=== PATIENT | male | born 1945 | race Caucasian/White ===

== ENCOUNTER 2021-10-23 01:02 | Inpatient (IN) | payer MEDICARE, MEDICAID ==
[2021-10-23] MEDS ORDERED: Levofloxacin 750 MG Tab ONE (04:58)
[2021-10-23] MEDS ORDERED: Sodium Chloride 0.9% 1,000 ML ONE (04:59)
[2021-10-23 06:23] LABS: CORONAVIRUS COVID-19 NAA NEGATIVE (NEGATIVE)
[2021-10-23] MEDS ORDERED: Acetaminophen 325 MG Tab PO PRN (12:13)
[2021-10-23] MEDS: Azithromycin 500 MG in Sodium Chloride 0.9% 250 ML IV SCH (12:59)
[2021-10-23] MEDS: Formoterol/Mometasone 200-5 MCG 8.8 GM Inhaler IH SCH ×2 (13:27→20:26)
[2021-10-23] MEDS: Dorzolamide/Timolol 2%-0.5% Ophth Soln 10 ML Bottle EYERT SCH ×2 (14:13→21:00)
[2021-10-23] MEDS: Potassium Chloride 20 MEQ Tab.ER PO SCH (14:13)
[2021-10-23] MEDS: Doxazosin 4 MG Tab PO SCH (14:13)
[2021-10-23] MEDS: cefTRIAXone 2 GM in Sodium Chloride 0.9% 100 ML IV SCH (14:13)
[2021-10-23] MEDS: acetaZOLAMIDE 250 MG Tab PO SCH (14:15)
[2021-10-23] MEDS: amLODIPine 10 MG Tab PO SCH (14:15)
[2021-10-23] MEDS ORDERED: UROCIT K 10 MEQ PO SCH (17:00)
[2021-10-23] MEDS: Albuterol/Ipratropium 3.0-0.5 MG/3 ML Neb Soln INH PRN (19:23)
[2021-10-23] MEDS: atorvaSTATin 20 MG Tab PO SCH (21:00)
[2021-10-23] MEDS: Latanoprost 0.005% Ophth Soln 2.5 ML Bottle EYEBOTH SCH (21:00)
[2021-10-24] MEDS: Albuterol/Ipratropium 3.0-0.5 MG/3 ML Neb Soln INH PRN (08:08)
[2021-10-24] MEDS: Formoterol/Mometasone 200-5 MCG 8.8 GM Inhaler IH SCH ×2 (08:08→20:11)
[2021-10-24] MEDS: Potassium Chloride 20 MEQ Tab.ER PO SCH (08:37)
[2021-10-24] MEDS: Enoxaparin 40 MG/0.4 ML Syringe SUBCUT SCH (08:37)
[2021-10-24] MEDS: Dorzolamide/Timolol 2%-0.5% Ophth Soln 10 ML Bottle EYERT SCH ×2 (08:38→20:22)
[2021-10-24] MEDS: acetaZOLAMIDE 250 MG Tab PO SCH (08:39)
[2021-10-24] MEDS: Doxazosin 4 MG Tab PO SCH (08:39)
[2021-10-24] MEDS: amLODIPine 10 MG Tab PO SCH (08:39)
[2021-10-24] MEDS ORDERED: predniSONE 5 MG Tab PO SCH (09:00)
[2021-10-24] MEDS ORDERED: predniSONE 5 MG Tab PO ONE (09:30)
[2021-10-24] MEDS: guaiFENesin 600 MG Tab.ER PO SCH ×2 (10:21→20:24)
[2021-10-24] MEDS: cefTRIAXone 2 GM in Sodium Chloride 0.9% 100 ML IV SCH ×2 (14:03→20:22)
[2021-10-24] MEDS: Azithromycin 500 MG in Sodium Chloride 0.9% 250 ML IV SCH ×2 (14:04→15:33)
[2021-10-24] MEDS: atorvaSTATin 20 MG Tab PO SCH (20:23)
[2021-10-24] MEDS: Latanoprost 0.005% Ophth Soln 2.5 ML Bottle EYEBOTH SCH (20:23)
[2021-10-25] MEDS ORDERED: predniSONE 20 MG Tab PO SCH (07:00)
[2021-10-25] MEDS: Formoterol/Mometasone 200-5 MCG 8.8 GM Inhaler IH SCH ×2 (08:25→20:56)
[2021-10-25] MEDS ORDERED: acetaZOLAMIDE 250 MG Tab PO SCH (09:00)
[2021-10-25] MEDS: guaiFENesin 600 MG Tab.ER PO SCH ×2 (09:04→20:28)
[2021-10-25] MEDS: Enoxaparin 40 MG/0.4 ML Syringe SUBCUT SCH (09:05)
[2021-10-25] MEDS: acetaZOLAMIDE 250 MG Tab PO SCH (09:05)
[2021-10-25] MEDS: Dorzolamide/Timolol 2%-0.5% Ophth Soln 10 ML Bottle EYERT SCH ×2 (09:05→20:36)
[2021-10-25] MEDS: Potassium Chloride 20 MEQ Tab.ER PO SCH (09:06)
[2021-10-25] MEDS: amLODIPine 10 MG Tab PO SCH (09:07)
[2021-10-25] MEDS: Doxazosin 4 MG Tab PO SCH (09:07)
[2021-10-25] MEDS: Azithromycin 500 MG in Sodium Chloride 0.9% 250 ML IV SCH (14:49)
[2021-10-25] MEDS: atorvaSTATin 20 MG Tab PO SCH (20:28)
[2021-10-25] MEDS: Latanoprost 0.005% Ophth Soln 2.5 ML Bottle EYEBOTH SCH (20:28)
[2021-10-25] MEDS: cefTRIAXone 2 GM in Sodium Chloride 0.9% 100 ML IV SCH (20:31)
[2021-10-26] MEDS: acetaZOLAMIDE 250 MG Tab PO SCH (08:37)
[2021-10-26] MEDS: guaiFENesin 600 MG Tab.ER PO SCH ×2 (08:37→20:04)
[2021-10-26] MEDS: Dorzolamide/Timolol 2%-0.5% Ophth Soln 10 ML Bottle EYERT SCH ×2 (08:38→20:04)
[2021-10-26] MEDS: Potassium Chloride 20 MEQ Tab.ER PO SCH (08:38)
[2021-10-26] MEDS: amLODIPine 10 MG Tab PO SCH (08:38)
[2021-10-26] MEDS: Enoxaparin 40 MG/0.4 ML Syringe SUBCUT SCH (08:38)
[2021-10-26] MEDS: predniSONE 10 MG Tab PO SCH (08:38)
[2021-10-26] MEDS: Doxazosin 4 MG Tab PO SCH (08:38)
[2021-10-26] MEDS: Formoterol/Mometasone 200-5 MCG 8.8 GM Inhaler IH SCH ×2 (08:48→20:25)
[2021-10-26] MEDS: Azithromycin 500 MG in Sodium Chloride 0.9% 250 ML IV SCH (15:21)
[2021-10-26] MEDS: Latanoprost 0.005% Ophth Soln 2.5 ML Bottle EYEBOTH SCH (20:04)
[2021-10-26] MEDS: atorvaSTATin 20 MG Tab PO SCH (20:04)
[2021-10-26] MEDS: cefTRIAXone 2 GM in Sodium Chloride 0.9% 100 ML IV SCH (20:06)
[2021-10-26] MEDS: Albuterol/Ipratropium 3.0-0.5 MG/3 ML Neb Soln INH PRN (20:24)
[2021-10-27] MEDS: Formoterol/Mometasone 200-5 MCG 8.8 GM Inhaler IH SCH (08:20)
[2021-10-27] MEDS: predniSONE 10 MG Tab PO SCH (08:58)
[2021-10-27] MEDS: acetaZOLAMIDE 250 MG Tab PO SCH (08:58)
[2021-10-27] MEDS: guaiFENesin 600 MG Tab.ER PO SCH (08:58)
[2021-10-27] MEDS: Enoxaparin 40 MG/0.4 ML Syringe SUBCUT SCH (08:59)
[2021-10-27] MEDS: Potassium Chloride 20 MEQ Tab.ER PO SCH (08:59)
[2021-10-27] MEDS: amLODIPine 10 MG Tab PO SCH (09:00)
[2021-10-27] MEDS: Doxazosin 4 MG Tab PO SCH (09:00)
[2021-10-27] MEDS: Dorzolamide/Timolol 2%-0.5% Ophth Soln 10 ML Bottle EYERT SCH (09:03)
[2021-10-27] MEDS: Azithromycin 500 MG in Sodium Chloride 0.9% 250 ML IV SCH (14:23)
== END 2021-10-27 15:35 | DRG 193 ==
LOC: JD.ED 01:02 → JD.MS 08:56 → OBSVTOIN 12:13
PROVIDERS: ADMIT Pediatrics; ATTEND Pediatrics
DX: J18.9 Pneumonia, unspecified organism (principal); J96.21 Acute and chronic respiratory failure with hypoxia; J96.22 Acute and chronic respiratory failure with hypercapnia; I50.23 Acute on chronic systolic (congestive) heart failure; H40.9 Unspecified glaucoma; I10 Essential (primary) hypertension; J96.01 Acute respiratory failure with hypoxia; I50.9 Heart failure, unspecified; E78.00 Pure hypercholesterolemia, unspecified; I11.0 Hypertensive heart disease with heart failure; Z66 Do not resuscitate; Z20.822 Contact with and (suspected) exposure to COVID-19; J43.2 Centrilobular emphysema; Z78.9 Other specified health status; Z79.52 Long term (current) use of systemic steroids; Z79.899 Other long term (current) drug therapy; Z87.891 Personal history of nicotine dependence; Z98.41 Cataract extraction status, right eye; Z98.42 Cataract extraction status, left eye
CPT/HCPCS: 0240U; 36415; 36600; 71045; 71046; 71275; 76705; 80053; 82728; 82803; 83540; 83880; 84484; 85025; 85379; 85652; 86140; 87040; 87641; 93306; 94640; 94760; 94761; 97110; 97162; 99285; 99233; 99239; A9270-GY; J0456; J0696; J1650; J7030; J7050; J7512; J7620-GY; U0002

== ENCOUNTER 2021-11-02 12:59 | Inpatient (IN) | payer MEDICARE, MEDICAID ==
[2021-11-02] MEDS ORDERED: Sodium Chloride 0.9% 10 ML Syringe FLUSH PRN (13:24)
[2021-11-02] MEDS ORDERED: Albuterol/Ipratropium 3.0-0.5 MG/3 ML Neb Soln NEB ONE (13:26)
[2021-11-02] MEDS ORDERED: methylPREDNISolone Sodium Succinate 125 MG/2 ML SDV IVPUSH ONE (13:27)
[2021-11-02] MEDS ORDERED: methylPREDNISolone Sodium Succinate 125 MG/2 ML SDV ONE (14:16)
[2021-11-02 14:59] LABS: CORONAVIRUS COVID-19 NAA NEGATIVE (NEGATIVE)
[2021-11-02] MEDS ORDERED: cefTRIAXone 2 GM in Sodium Chloride 0.9% 100 ML IV ONE (15:03)
[2021-11-02] MEDS ORDERED: Acetaminophen 325 MG Tab PO PRN (16:28)
[2021-11-02] MEDS ORDERED: oxyCODONE 5 MG Tab PO PRN (16:28)
[2021-11-02] MEDS ORDERED: Ondansetron 4 MG Tab.DIS PO PRN (16:28)
[2021-11-02] MEDS ORDERED: Docusate Sodium 100 MG Cap PO PRN (16:28)
[2021-11-02] MEDS ORDERED: Temazepam 7.5 MG Cap PO PRN (16:28)
[2021-11-02] MEDS: Heparin Sodium 5,000 Units/ML Vial SUBCUT SCH (16:47)
[2021-11-02] MEDS ORDERED: Azithromycin 500 MG in Sodium Chloride 0.9% 250 ML IV SCH (17:00)
[2021-11-02] MEDS: Sodium Chloride 0.9% 1,000 ML IV SCH (19:27)
[2021-11-02] MEDS: Dorzolamide/Timolol 2%-0.5% Ophth Soln 10 ML Bottle EYERT SCH (20:39)
[2021-11-02] MEDS: Latanoprost 0.005% Ophth Soln 2.5 ML Bottle EYEBOTH SCH (20:40)
[2021-11-02] MEDS: Formoterol/Mometasone 200-5 MCG 8.8 GM Inhaler IH SCH (20:45)
[2021-11-03] MEDS: Heparin Sodium 5,000 Units/ML Vial SUBCUT SCH ×3 (00:08→15:37)
[2021-11-03] MEDS ORDERED: predniSONE 20 MG Tab PO SCH (07:00)
[2021-11-03] MEDS: Formoterol/Mometasone 200-5 MCG 8.8 GM Inhaler IH SCH ×2 (08:00→20:00)
[2021-11-03] MEDS: Albuterol/Ipratropium 3.0-0.5 MG/3 ML Neb Soln INH PRN ×3 (08:00→19:42)
[2021-11-03] MEDS: Potassium Chloride 20 MEQ Tab.ER PO SCH (08:33)
[2021-11-03] MEDS: predniSONE 20 MG Tab PO SCH (08:33)
[2021-11-03] MEDS: acetaZOLAMIDE 250 MG Tab PO SCH (08:34)
[2021-11-03] MEDS: Dorzolamide/Timolol 2%-0.5% Ophth Soln 10 ML Bottle EYERT SCH ×2 (08:35→20:05)
[2021-11-03] MEDS: amLODIPine 10 MG Tab PO SCH (08:35)
[2021-11-03] MEDS: Doxazosin 4 MG Tab PO SCH (08:35)
[2021-11-03] MEDS ORDERED: predniSONE 5 MG Tab PO SCH (09:00)
[2021-11-03] MEDS ORDERED: Meropenem 1 GM in Sodium Chloride 0.9% 100 ML IV SCH (14:45)
[2021-11-03] MEDS: Sodium Chloride 0.9% 1,000 ML IV SCH (14:54)
[2021-11-03] MEDS: Meropenem Premix 500 MG in Premix Bag 1 BAG IV SCH ×2 (14:54→20:01)
[2021-11-03] MEDS: Latanoprost 0.005% Ophth Soln 2.5 ML Bottle EYEBOTH SCH (20:08)
[2021-11-04] MEDS: Heparin Sodium 5,000 Units/ML Vial SUBCUT SCH ×3 (00:12→17:57)
[2021-11-04] MEDS: Meropenem Premix 500 MG in Premix Bag 1 BAG IV SCH ×4 (02:41→20:27)
[2021-11-04] MEDS ORDERED: Furosemide 20 MG/2 ML VIAL IVPUSH ONE (07:09)
[2021-11-04] MEDS: Formoterol/Mometasone 200-5 MCG 8.8 GM Inhaler IH SCH ×2 (08:19→20:08)
[2021-11-04] MEDS: acetaZOLAMIDE 250 MG Tab PO SCH (08:32)
[2021-11-04] MEDS: predniSONE 20 MG Tab PO SCH (08:33)
[2021-11-04] MEDS: Doxazosin 4 MG Tab PO SCH (08:33)
[2021-11-04] MEDS: amLODIPine 10 MG Tab PO SCH (08:33)
[2021-11-04] MEDS: Dorzolamide/Timolol 2%-0.5% Ophth Soln 10 ML Bottle EYERT SCH ×2 (08:39→23:00)
[2021-11-04] MEDS: Potassium Chloride 20 MEQ Tab.ER PO SCH (09:00)
[2021-11-04] MEDS: Albuterol/Ipratropium 3.0-0.5 MG/3 ML Neb Soln INH PRN (19:58)
[2021-11-04] MEDS: Latanoprost 0.005% Ophth Soln 2.5 ML Bottle EYEBOTH SCH (20:29)
[2021-11-04] MEDS ORDERED: Magnesium Hydroxide 400 MG/5 ML Susp 30 ML Cup PO ONE (21:09)
[2021-11-05] MEDS: Heparin Sodium 5,000 Units/ML Vial SUBCUT SCH ×3 (00:16→16:20)
[2021-11-05] MEDS: Meropenem Premix 500 MG in Premix Bag 1 BAG IV SCH ×4 (03:22→21:26)
[2021-11-05] MEDS: Albuterol/Ipratropium 3.0-0.5 MG/3 ML Neb Soln INH PRN ×2 (05:36→19:58)
[2021-11-05] MEDS: acetaZOLAMIDE 250 MG Tab PO SCH (08:12)
[2021-11-05] MEDS: Potassium Chloride 20 MEQ Tab.ER PO SCH (08:12)
[2021-11-05] MEDS: amLODIPine 10 MG Tab PO SCH (08:12)
[2021-11-05] MEDS: predniSONE 20 MG Tab PO SCH (08:12)
[2021-11-05] MEDS: Doxazosin 4 MG Tab PO SCH (08:13)
[2021-11-05] MEDS: Dorzolamide/Timolol 2%-0.5% Ophth Soln 10 ML Bottle EYERT SCH ×2 (08:27→20:39)
[2021-11-05] MEDS: Formoterol/Mometasone 200-5 MCG 8.8 GM Inhaler IH SCH ×2 (08:59→20:01)
[2021-11-05] MEDS: Latanoprost 0.005% Ophth Soln 2.5 ML Bottle EYEBOTH SCH (20:37)
[2021-11-05] MEDS ORDERED: Magnesium Hydroxide 400 MG/5 ML Susp 30 ML Cup PO ONE (21:04)
[2021-11-06] MEDS: Heparin Sodium 5,000 Units/ML Vial SUBCUT SCH ×3 (00:28→15:47)
[2021-11-06] MEDS: Meropenem Premix 500 MG in Premix Bag 1 BAG IV SCH ×4 (03:49→20:46)
[2021-11-06] MEDS: Albuterol/Ipratropium 3.0-0.5 MG/3 ML Neb Soln INH PRN ×2 (05:38→19:55)
[2021-11-06] MEDS: acetaZOLAMIDE 250 MG Tab PO SCH (08:06)
[2021-11-06] MEDS: Doxazosin 4 MG Tab PO SCH (08:06)
[2021-11-06] MEDS: Potassium Chloride 20 MEQ Tab.ER PO SCH (08:08)
[2021-11-06] MEDS: amLODIPine 10 MG Tab PO SCH (08:09)
[2021-11-06] MEDS: predniSONE 20 MG Tab PO SCH (08:09)
[2021-11-06] MEDS: Dorzolamide/Timolol 2%-0.5% Ophth Soln 10 ML Bottle EYERT SCH ×2 (08:10→20:45)
[2021-11-06] MEDS: Formoterol/Mometasone 200-5 MCG 8.8 GM Inhaler IH SCH ×2 (08:23→20:04)
[2021-11-06] MEDS: Latanoprost 0.005% Ophth Soln 2.5 ML Bottle EYEBOTH SCH (20:40)
[2021-11-07] MEDS: Heparin Sodium 5,000 Units/ML Vial SUBCUT SCH ×2 (01:00→08:47)
[2021-11-07] MEDS: Meropenem Premix 500 MG in Premix Bag 1 BAG IV SCH ×3 (03:30→14:00)
[2021-11-07] MEDS: Albuterol/Ipratropium 3.0-0.5 MG/3 ML Neb Soln INH PRN (05:43)
[2021-11-07] MEDS: Formoterol/Mometasone 200-5 MCG 8.8 GM Inhaler IH SCH (08:17)
[2021-11-07] MEDS: Doxazosin 4 MG Tab PO SCH (08:46)
[2021-11-07] MEDS: Potassium Chloride 20 MEQ Tab.ER PO SCH (08:46)
[2021-11-07] MEDS: predniSONE 20 MG Tab PO SCH (08:46)
[2021-11-07] MEDS: acetaZOLAMIDE 250 MG Tab PO SCH (08:46)
[2021-11-07] MEDS: amLODIPine 10 MG Tab PO SCH (08:47)
[2021-11-07] MEDS: Dorzolamide/Timolol 2%-0.5% Ophth Soln 10 ML Bottle EYERT SCH (08:47)
== END 2021-11-07 14:32 | DRG 193 ==
LOC: JD.ED 12:59 → JD.ICU 15:55
PROVIDERS: ADMIT Internal Medicine; ATTEND Internal Medicine
DX: J15.6 Pneumonia due to other Gram-negative bacteria (principal); R09.02 Hypoxemia; J44.0 Chronic obstructive pulmonary disease with (acute) lower respiratory infection; J18.9 Pneumonia, unspecified organism; H40.9 Unspecified glaucoma; E78.00 Pure hypercholesterolemia, unspecified; J96.21 Acute and chronic respiratory failure with hypoxia; J96.22 Acute and chronic respiratory failure with hypercapnia; I50.23 Acute on chronic systolic (congestive) heart failure; I11.0 Hypertensive heart disease with heart failure; Z66 Do not resuscitate; E78.5 Hyperlipidemia, unspecified; J43.9 Emphysema, unspecified; Z79.2 Long term (current) use of antibiotics; Z20.822 Contact with and (suspected) exposure to COVID-19; Z79.899 Other long term (current) drug therapy; Z79.52 Long term (current) use of systemic steroids; Z87.01 Personal history of pneumonia (recurrent); Z87.81 Personal history of (healed) traumatic fracture; Z98.42 Cataract extraction status, left eye; Z98.41 Cataract extraction status, right eye; Z90.89 Acquired absence of other organs; Z98.890 Other specified postprocedural states; Z87.891 Personal history of nicotine dependence
CPT/HCPCS: 0241U; 36415; 36600; 71045; 80053; 82803; 83605; 83735; 83880; 84484; 85025; 85610; 85730; 86140; 93005; 94640; 94762; 96365; 96375; 99285; 93010; A9270-GY; J0456; J0696; J1644; J1940; J2185; J2930; J7030; J7050; J7512; J7620-GY; U0002

== ENCOUNTER 2022-01-11 13:39 | Emergency (ER) | payer MEDICARE, MEDICAID ==
[2022-01-11] MEDS ORDERED: Sodium Chloride 0.9% 10 ML Syringe FLUSH PRN (13:54)
[2022-01-11] MEDS ORDERED: Albuterol/Ipratropium 3.0-0.5 MG/3 ML Neb Soln NEB ONE (13:55)
[2022-01-11] MEDS ORDERED: Magnesium Sulfate/Water 2 GM in Premix Bag 1 BAG IV ONE (13:55)
[2022-01-11] MEDS ORDERED: methylPREDNISolone Sodium Succinate 125 MG/2 ML SDV IVPUSH ONE (13:55)
[2022-01-11] MEDS ORDERED: cefTRIAXone 2 GM in Sodium Chloride 0.9% 100 ML IV ONE (14:25)
== END 2022-01-11 18:41 ==
LOC: JD.ED 13:39
DX: J18.9 Pneumonia, unspecified organism (principal); J44.1 Chronic obstructive pulmonary disease with (acute) exacerbation; J96.01 Acute respiratory failure with hypoxia; E78.00 Pure hypercholesterolemia, unspecified; I10 Essential (primary) hypertension; Z20.822 Contact with and (suspected) exposure to COVID-19; Z79.899 Other long term (current) drug therapy
CPT/HCPCS: 36415; 36600; 71045; 80053; 82803; 83605; 85025; 87040; 94640; 94660; 96365; 96366; 96368; 96375; 99285; J0696; J2930; J3475; J3490; U0002; J7620-GY